=== PATIENT | male | born 1955 | race Caucasian/White ===

== ENCOUNTER 2019-03-21 12:35 | Outpatient (CLI) | payer BC ==
--- NOTE | 2019-03-21 13:16 | RAD ---
RIGHT FOOT RADIOGRAPHS THREE VIEWS: 03/21/2019 PROVIDED CLINICAL HISTORY: Infection. COMPARISON: None. FINDINGS: Extensive articular cortical irregularity involves the first and second TMT joints, with associated j oint space loss. Multiple surgical clips are seen about the medial aspect of the midfoot and the dors al aspect of the hindfoot. There is no evidence for fracture. Plantar calcaneal enthesophyte formatio n is noted. 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 POS: OFF
== END 2019-03-21 12:36 | disposition home or self-care (01) ==
LOC: SCSRAD 12:35
PROVIDERS: ATTEND Internal Medicine Infectious Disease
DX: M86.672 Other chronic osteomyelitis, left ankle and foot (principal)